=== PATIENT | male | born 1980 | race Two or more races ===

== ENCOUNTER 2024-05-23 22:27 | Emergency (ER) | payer SELFPAY ==
[~2024-05-23] VITALS: Ht 170.2 cm; Wt 90.7 kg
[2024-05-23 23:00] VITALS: TEMP 98.6
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
[2024-05-23] MEDS: HYDROcodone-ACET 5/325MG TAB PO ONE (23:42)
[2024-05-24] MEDS: ONDANSETRON HCL 4 MG/2 ML VIAL IV ONE (00:25)
[2024-05-24] MEDS: ONDANSETRON HCL 4 MG/2 ML VIAL ONE (00:25)
[2024-05-24 00:28] VITALS: BP 154/80; PULSE 90; RESP 12; O2SAT 96
--- NOTE | 2024-05-24 00:55 | DVH ---
CHEST RADIOGRAPH Indication: cp Technique: Single frontal view of the chest was obtained Comparison: None Findings/ IMPRESSION: Low lung volumes with bronchovascular crowding. No focal consolidation or pneumothorax.
== END 2024-05-24 00:40 | disposition home or self-care (01) ==
LOC: ER 22:27
DX: R51.9 Headache, unspecified (principal); R07.89 Other chest pain; E66.9 Obesity, unspecified
CPT/HCPCS: 70450; 71045; 96374; 99285; J2405

== ENCOUNTER 2024-06-07 13:20 | Emergency (ER) | payer OTHER ==
[~2024-06-07] VITALS: Ht 170.2 cm; Wt 90.9 kg
[2024-06-07 13:36] VITALS: BP 144/93; PULSE 66; RESP 17; TEMP 98.3; O2SAT 99
--- NOTE | 2024-06-07 14:50 | ED.PDOC ---
History of Present Illness HPI Comments 43 year old male presents to the ED with chief complaint of staple removal. Patient reports that he has had tonia in his scalp for the past 3 weeks, being advised to come to the ED by his fpc. Patient denies any headache, dizziness, N/V, or numbness. Chief Complaint: Suture Removal Time Seen by MD: 14:48 Reviewed Notes: Nurses Notes, Medications, Allergies Allergies: Coded Allergies: NO KNOWN ALLERGIES (Unverified , 05/23/24) Information Source: Patient Mode of Arrival: Ambulatory Severity: Mild Timing: Weeks Duration: Since onset Prehospital treatment: None Past Medical History PAST MEDICAL HISTORY: Denies Surgical History: Denies all surgeries Family History Family History: Reviewed,noncontributory to illness, Unknown Social History Smoker: Non-Smoker Alcohol: Sober Drugs: Denies Drug Use Lives In: Home Constitutional: denies: chills, diaphoresis, fatigue, fever, malaise, sweats, weakness, others EENTM: denies: blurred vision, double vision, ear bleeding, ear discharge, ear drainage, ear pain, ear ringing, eye pain, eye redness, hearing loss, mouth pain, mouth swelling, nasal discharge, nose bleeding, nose congestion, nose pain, photophobia, tearing, throat pain, throat swelling, voice changes, others Respiratory: denies: cough, hemoptysis, orthopnea, SOB at rest, shortness of breath, SOB with excertion, stridor, wheezing, others Cardiovascular: denies: chest pain, dizzy spells, diaphoresis, Dyspnea on exertion, edema, irregular heart beat, left arm pain, lightheadedness, palpitations, PND, syncope, others Gastrointestinal: denies: abdomen distended, abdominal pain, blood streaked bowels, constipated, diarrhea, dysphagia, difficulty swallowing, hematemesis, melena, nausea, poor appetite, poor fluid intake, rectal bleeding, rectal pain, vomiting, others Genitourinary: denies: burning, dysuria, flank pain, frequency, hematuria, incontinence, penile discharge, penile sore, pain, testicle pain, testicle swelling, urgency, others Neurological: denies: dizziness, fainting, headache, left sided numbness, left sided weakness, numbness, paresthesia, pre-existing deficit, right sided numbness, right sided weakness, seizure, speech problems, tingling, tremors, weakness, others Musculoskeletal: denies: back pain, gout, joint pain, joint swelling, muscle pain, muscle stiffness, neck pain, others Integumetry: reports: others (Tonia to scalp); denies: bruises, change in color, change in hair/nails, dryness, laceration, lesions, lumps, rash, wounds Allergic/Immunocompromised: denies: Difficulty Healing, Frequent Infections, Hives, Itching, others Hematologic/Lymphatic: denies: anemia, blood clots, easy bleeding, easy bruising, swollen glands, others Endocrine: denies: excessive hunger, excessive sweating, excessive thirst, excessive urination, flushing, intolerance to cold, intolerance to heat, unexplained weight gain, unexplained weight loss, others Psychiatric: denies: anxiety, bipolar disorder, depression, hopeless, panic disorder, schizophrenia, sleepless, suicidal, others All Other Systems: Reviewed and Negative Physical Exam General Appearance: No Apparent Distress, Normal HEENT: Normal ENT Inspection, PERRL/EOMI, Other (Farber present on scalp) Neck: Full Range of Motion, Non-Tender, Normal, Normal Inspection Respiratory: Chest Non-Tender, Lungs Clear, No Accessory Muscle Use, No Respiratory Distress, Normal Breath Sounds Cardiovascular: No Edema, No JVD, No Murmur, No Gallop, Normal Peripheral Pulses, Regular Rate/Rhythm Breast Exam: Deferred Gastrointestinal: No Organomegaly, Non Tender, No Pulsatile Mass, Normal Bowel Sounds, Soft Genitalia: Deferred Pelvic: Deferred Rectal: Deferred Extremities: No calf tenderness, Normal capillary refill, Normal inspection, Normal range of motion, Non-tender, No pedal edema Musculoskeletal : Apperance: Normal Neurologic: Alert, job developer II-XII nml as Tested, No Motor Deficits, Normal Affect, Normal Mood, No Sensory Deficits Cerebellar Function: Normal Reflexes: Normal Skin: Dry, Normal Color, Warm Lymphatic: No Adenopathy Was a procedure done? Was a procedure done?: Yes Sedation Sedation?: No Other Procedure Procedure Staple removal Indication Tonia in scalp x 3 weeks Informed consent obtained: Yes Risks, benefits, and alternati: Yes Differential Dx Considerations may include: Staple removal X-Ray, Labs, Meds, VS Vital Signs Date Time Temp Pulse Resp B/P (MAP) Pulse Ox O2 Delivery O2 Flow Rate FiO2 2/10/25 13:36 98.3 66 17 144/93 (110) 99 06/07/24 13:36 98.3 66 17 144/93 (110) 99 98.3 Time of 1ST Reevaluation: 15:00 Reevaluation 1ST: Resolved Patient Education/Counseling: Diagnosis, Treatment Family Education/Counseling: No Family Present Additional Information I reviewed the following notes from patient's past medical encounters: 05/23/24 for headache The following tests were ordered, and results were reviewed by me: None I reviewed and agreed with the following test results read by other providers: None Additional Information was gathered from interviewing the following independent historians: None I discussed treatment and results with medical personnel. Departure 1 Departure Time of Disposition: 16:47 (I removed 10 tonia from patient's head. Patient tolerated the procedure well without issue.) Impression: Primary Impression: Removal of staple Disposition: 01 HOME / SELF CARE / HOMELESS Condition: Stable Additional Instructions: Your tonia removed. Please follow up with the regular doctor as needed. Discharged With: Self Critical Care Note Critical Care Time?: No Stability Stability form required: No Heart Score Heart Score: Heart Score Response (Comments) Value History N/A 0 EKG N/A 0 Age N/A 0 Risk Factors N/A 0 Troponin N/A 0 Total 0 I personally scribed for ANEESH MCALLISTER MD ([email or web address]) on 06/07/24 at 14:50. Electronically submitted by Andrei Lema ([email or web address]). ANEESH MCALLISTER MD Jun 07, 2024 14:50
== END 2024-06-07 16:56 | disposition home or self-care (01) ==
LOC: ER 13:20
DX: S01.01XD Laceration without foreign body of scalp, subsequent encounter (principal); Z48.02 Encounter for removal of sutures; X58.XXXD Exposure to other specified factors, subsequent encounter